=== PATIENT | male | born 1960 | race Caucasian/White ===

== ENCOUNTER 2021-09-01 13:01 | Outpatient (RCR) | payer MEDICARE, MEDICAID, SELFPAY ==
--- NOTE | 2021-09-14 20:27 | MHC.SP.ADU ---
Referring provider: Dr. Andrzej Mabry Reason for Referral: Annual Documentation for DDR Type of Treatment: 29527 Evaluation Speech Sound Production WITH Language Date of Plan of Treatment: 09/01/21 Onset of Symptoms/Illness: 09/01/21 Date Treatment Started: 09/01/21 Medical Diagnosis: Intellectual Disability, Fluency Disorder Primary Speech Language Diagnosis: R41.841 Cognitive communication disorder Secondary Speech Language Diagnosis: R47.82 Fluency History Mr. Konrad Clarke, a 61 year old man, was referred today for Speech/Language Evaluation by his physician, Dr. Andrzej Mabry. Mr. Clarke's assistant reading teacher who accompanied him to this evaluation reported that the evaluation was needed for the purpose of updating his documentation of disability, which he reported was needed annually. Mr. 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 Mr. Clarke is currently living in a long term in [place], and attends a day work program where he performs a variety work assignments for earned income. 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 Mr. 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 After completing Highschool at age 22, Mr. Clarke reports his family returned to the [facility] area. He has since lived in a variety of supported living situations, moving most recently to his current residential long term in November of 2020. 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 Clarke currently lives in a long term, participates in a daily work program, and has baby counselor to assist him with activities of daily living. Mr. Clarke attended a high school program until age 22 as qualified under Special Education Law. Assistive Devices in use: Comment: Past Speech Language Therapy: Mr. Clarke received support through special education throughout his school age years. He reports that he cannot recall speech therapy or a speech therapist who worked with him specifically on his fluency disorder. Reported Speech, Language, Cognition difficulties: Understanding, Speaking Comments: Mr. Clarke has a history of intellectual disability from . Additionally, Mr. Clarke has had a moderate fluency disorder since coverage specialist. Patient Stated Goal of Speech-Language Therapy: Update testing for annual DDR requirement. Assessment Speech Production: Nonfluent Clinical Impression: Impaired Observations: When in conversation and in structured speech activities, Mr. Clarke demonstrated frequent speech disfluency, characterized by syllable, part word, whole word and whole phrase repetitions. Disfluencies were most common when initiating an utterance, but could also occur mid-utterance/phrase. Mr. Clarke often also demonstrated a rehearsal or lower volume phrase length utterances, before resuming normal volume when in conversation. On a fourteen item word, phrase and sentence repetition task with a total of 48 words, Mr. 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 Informal Voice Assessment: Voice Loudness: Normal Voice Nasal Resonance: Normal Voice Oral Resonance: Normal Voice Phonatory-based Quality: Normal Voice Pitch: Normal Tests of Speech & Language Adults: Clinical Impression: Impaired Observations: For this assessment, The Receptive One Word Picture Vocabulary Test, 4th Edition (ROWPVT-4) and the Expressive One Word Picture Vocabulary Test, 4th Edition (EOWPVT-4) were used to assess general language function. In addition, two subtests of the Western Aphasia Battery Revised (WAB-R) were used informally to assess aspects of receptive and expressive language, with the following results: ROWPVT-4: Raw Score: 107, Standard Score: <55; Percentile Rank <1, Age Equivalent: 9-0 EOWPVT-4: Raw Score: 96, Standard Score: <55; Percentile Rank <1, Age Equivalent: 8-2 Comment: Given Mr. Clarke's age, history of Intellectual Disability and absence of any new onset neurological disorder, normative language assessment instruments are limited to vocabulary assessment. Receptive/Expressive Vocabulary assessment yields a general overall assessment of language function. On testing today, Mr. Clarke demonstrates results consistent with long standing, well established cognitive/linguistic disability. In both receptive and expressive domains, Mr. Clarke demonstrated strong skills with functional vocabulary, and greater difficulty when asked to identify or label higher order vocabulary items (e.g. identifying a category, use or function for a collection of items, labelling concepts v. objects). On Subtests of the WAB/R Mr. Clarke demonstrated the ability to follow one, two and three step length directions with very good accuracy. On a task that elicits narrative length language using detailed line drawing picture, Mr. Clarke spontaneously offered a sentence length summary description of the scene. With wh? prompts he provided more detail and descriptive information, generally using full and complete sentences to respond. In social conversation, Mr. Clarke was initially hesitant to interact, initially often looking to his aid to assist in responding to my conversational questions, but then more amply and easily responded when talking about his life and places he had lived, demonstrating functional and engaging social communication skills when more confident with the communication partner. Mr. 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 Impressions and Recommendations Summary: Impact on Daily Function/Activity Limitations: Daily Activities: Moderate Interpersonal Interactions: Moderate Education: Moderate Employment: Moderate Community: Moderate Prognosis for Improvement: Comment: n/a: Speech, Language and General communication skills assessed today are longstanding and lifelong. Mr. Clarke will continue to need the level of daily support for his activities of daily living, including at work and general community interactions that he currently receives. Sales Planning Analyst Clinican/Clinical Fellow: No Supervisory Statement: N/A Speech Language Pathologist: Jolene Montana M.A., CCC-PHONE SPECIALIST
== END 2021-09-01 15:00 | disposition home or self-care (01) ==
LOC: HO.SH 13:01
PROVIDERS: Visit Provider Internal Medicine
DX: R41.841 Cognitive communication deficit (principal); R47.82 Fluency disorder in conditions classified elsewhere
CPT/HCPCS: 92523

== ENCOUNTER 2021-09-09 15:01 | Outpatient (REF) | payer MEDICARE, MEDICAID, SELFPAY ==
--- NOTE | 2021-09-15 11:59 | MHC.AU.ANO ---
Adult Audiological Evaluation Date of Visit: 09/09/21 Video News Editor Used: Not Applicable Reason for Appointment: Audiologic Evaluation as required by [facility] program. Does patient feel they have a hearing loss?: No Has hearing been tested previously?: Previous Hearing Test Results: Results are not available Hearing Handicap Inventory: HHIE SCORE: 0 Based on HHIE score, patient has: No perceived hearing handicap Ear History: Ear used on the phone: Right Ear History of occupational noise exposure?: No History: History: No Medical History: Medical History: High Blood Pressure, Hyperlipidemia Medication List: Acetaminophen (as needed) Otoscopy: Right Ear: Mostly occluding, dry, and impacted cerumen Left Ear: Mostly occluding, dry, and impacted cerumen Tympanometry: Tympanometry performed due to: To assess integrity of the middle ear system Right Ear: Could Not Obtain Seal Left Ear: Normal Middle Ear System (Type A) Otoacoustic Emissions Did not test due to cerumen occlusion Hearing Evaluation: Transducer(s) Used: Insert Earphones Bone Conduction Method: Conventional Audiometry Stimuli Used: Pure Tones Right Ear: Description of Hearing: Normal hearing thresholds at 250-4000 Hz, sloping to a mild loss at 8000 Hz Left Ear: Description of Hearing: Moderate conductive hearing loss at 250 Hz, rising to borderline normal conductive loss at 500-2000 Hz, sloping to a moderate high frequency mixed hearing loss at 4657-7291 Hz. Speech Recognition Threshold (SRT): Method Used: Monitored Live Voice Stimuli Used: Spondee Words Right Ear: 10 dB HL Left Ear: 15 dB HL Word Discrimination: Method: Recorded Lists Word Lists Used: NU-6 Right Ear: 100% at 50 dB HL Left Ear: 92% at 55 dB HL Interpretation of Results: The left ear conductive loss and inability to obtain a seal to complete the right ear tympanometry are likely related to the mostly occluding cerumen. Recommendations: Follow-up with physician for cerumen removal. Advise an audiologic re-evaluation be scheduled following cerumen removal. 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
== END 2021-09-09 15:02 | disposition home or self-care (01) ==
LOC: HO.SH 15:01
PROVIDERS: Visit Provider Internal Medicine
DX: H61.23 Impacted cerumen, bilateral (principal); H90.71 Mixed conductive and sensorineural hearing loss, unilateral, right ear, with unrestricted hearing on the contralateral side; H90.72 Mixed conductive and sensorineural hearing loss, unilateral, left ear, with unrestricted hearing on the contralateral side
CPT/HCPCS: 92523; 92557; 92567

== ENCOUNTER 2022-01-16 09:18 | Outpatient (REF) | payer MEDICARE, MEDICAID, SELFPAY ==
--- NOTE | 2022-02-02 13:59 | MHC.AU.ANO ---
Adult Audiological Evaluation Date of Visit: 01/16/22 Stone Derrickman And Rigger Used: Not Applicable Reason for Appointment: Audiologic re-evaluation following cerumen removal. Konrad was previously tested at this office in August 2021 and found to have occluding cerumen in both ears with decreased hearing likely related to the cerumen. Has hearing been tested previously?: Yes Previous Hearing Test Results: 09/09/2021 [facility] Right ear - Normal hearing thresholds 250-4000 Hz, sloping to a mild loss at 8000 Hz. Left ear - Moderate conductive hearing loss at 250 Hz, rising to borderline normal hearing levels with conductive components at 500-2000 Hz, sloping to a moderate high frequency mixed hearing loss 8014-7138 Hz. Ear History: History of occupational noise exposure?: No Medical History: Medical History: High Blood Pressure and Hyperlipidemia Otoscopy: Right Ear: Small amount of non-occluding cerumen Left Ear: Unremarkable Tympanometry: Tympanometry performed due to: To assess integrity of the middle ear system Right Ear: Normal Middle Ear System (Type A) Left Ear: Normal Middle Ear System (Type A) Otoacoustic Emissions Not performed at today's visit. Hearing Evaluation: Transducer(s) Used: Insert Earphones Method: Conventional Audiometry Stimuli Used: Pure Tones Right Ear: Description of Hearing: Normal hearing thresholds 250-4000 Hz with a mild loss at 8000 Hz Left Ear: Description of Hearing: Normal hearing thresholds 250-4000 Hz with a mild loss at 8000 Hz Speech Recognition Threshold (SRT): Method Used: Monitored Live Voice Stimuli Used: Spondee Words Right Ear: 5 dB HL Left Ear: 5 dB HL Word Discrimination: Method: Recorded Lists Word Lists Used: NU-6 Right Ear: 100% at 50 dB HL Left Ear: 100% at 50 dB HL Interpretation of Results: Thresholds and middle ear function have improved following cerumen removal Recommendations: No further audiological action is indicated at this time. Advise re-evaluations as required by Konrad's mcc. Cerumen removal by PCP when needed Diagnosis: Primary Diagnosis: H61.23 Impacted Cerumen, Bilateral Secondary Diagnosis: H90.3 Bilateral Sensorineural Hearing Loss Services Performed: Pure Tone- Air (CPT 59036) Speech Audiometry Threshold, with Speech Recognition (CPT 37420) Tympanometry (CPT 65454) Signature: Provider: David Junior, [facility]
== END 2022-01-16 09:19 | disposition home or self-care (01) ==
LOC: HO.SH 09:18
PROVIDERS: Visit Provider Internal Medicine
DX: Z01.118 Encounter for examination of ears and hearing with other abnormal findings (principal); H90.3 Sensorineural hearing loss, bilateral; H61.23 Impacted cerumen, bilateral
CPT/HCPCS: 92552; 92556; 92567

== ENCOUNTER 2023-08-26 14:19 | Outpatient (REF) | payer MEDICARE, MEDICAID, SELFPAY | END 2023-08-26 14:20 | disposition home or self-care (01) | LOC: HO.SH 14:19 | PROVIDERS: Visit Provider Internal Medicine | DX: Z01.118 Encounter for examination of ears and hearing with other abnormal findings (principal); H90.3 Sensorineural hearing loss, bilateral | CPT/HCPCS: 92557; 92567 ==

== ENCOUNTER 2024-08-31 10:13 | Outpatient (REF) | payer MEDICARE, MEDICAID, SELFPAY | END 2024-08-31 10:14 | disposition home or self-care (01) | LOC: HO.SH 10:13 | PROVIDERS: PCP Internal Medicine; Visit Provider Internal Medicine | DX: Z01.118 Encounter for examination of ears and hearing with other abnormal findings (principal); H90.3 Sensorineural hearing loss, bilateral | CPT/HCPCS: 92552; 92556 ==